=== PATIENT | female | born 2000 | race Two or more races ===

== ENCOUNTER 2021-05-31 21:35 | Inpatient (IN) | payer OTHER ==
[~2021-05-31] VITALS: Ht 157.5 cm; Wt 81.6 kg
[2021-05-31] MEDS ORDERED: PRENATAL TABLE1 EAC1 PO (22:22)
== END 2021-06-03 12:59 | disposition home or self-care (01) | DRG 807 ==
LOC: LDR 21:35 → OB/GYN 06-01 05:15
PROVIDERS: ADMIT Obstetrics & Gynecology; ATTEND Obstetrics & Gynecology
PROC: 10E0XZZ Delivery of Products of Conception, External Approach (ICD-10-PCS; principal; 2021-05-31)
PROC: 4A1HXFZ Monitoring of Products of Conception, Cardiac Rhythm, External Approach (ICD-10-PCS; 2021-05-31)
DX: O42.02 Full-term premature rupture of membranes, onset of labor within 24 hours of rupture (principal); Z37.0 Single live birth; Z3A.37 37 weeks gestation of pregnancy